=== PATIENT | female | born 1985 | race Caucasian/White ===

== ENCOUNTER 2022-08-23 08:28 | Emergency (ER) | payer OTHER ==
[2022-08-23 08:45] VITALS: BP 140/96
[2022-08-23] MEDS ORDERED: AMOX/CLAV 875 MG/125 MG TABLET PO STA (09:40)
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
== END 2022-08-23 10:05 | disposition home or self-care (01) ==
LOC: ED 08:28
DX: S61.412A Laceration without foreign body of left hand, initial encounter (principal); S61.411A Laceration without foreign body of right hand, initial encounter; W55.01XA Bitten by cat, initial encounter; F17.200 Nicotine dependence, unspecified, uncomplicated
CPT/HCPCS: 99282; 99283; A9270

== ENCOUNTER 2023-01-13 10:27 | Emergency (ER) | payer OTHER ==
[2023-01-13 10:41] VITALS: BP 159/96
[2023-01-13 10:55] LABS: RAPID STREP SCREEN Negative (Negative)
--- NOTE | 2023-01-13 11:08 | ED Physician Documentation ---
History of Present Illness - Stated complaint Stated Complaint: FEVER,SORE THROAT - Chief complaint Chief Complaint: Heent - History obtained from History obtained from: Patient - Additonal information Additional information: Here w/ sore throat for about 36 hours, feels some post Nasal drip and a bit of a lump in her throat but is not having difficulty managing secretions or airway. She denies any chest pain or difficulty breathing, no cough or nasal congestion. She has not had a fever to her knowledge. No known sick contacts but does have a toddler in daycare. She has been taking ibuprofen and Tylenol periodically. Review of Systems Constitutional: reports: Reviewed and negative Nose: reports: Reviewed and negative Throat: reports: Sore throat Cardiac: reports: Reviewed and negative Respiratory: reports: Reviewed and negative GI: reports: Reviewed and negative PD PAST MEDICAL HISTORY - Past Medical History Past Medical History: No - Present Medications Home Medications: Ambulatory Orders Medication Instructions Recorded Confirmed No Known Home Medications 01/13/23 01/13/23 - Allergies Allergies/Adverse Reactions: Allergies Allergy/AdvReac Type Severity Reaction Status Date / Time No Known Drug Allergies Allergy Verified 08/23/22 08:45 - Social History Does the pt smoke?: Yes Smoking Status: Current every day smoker PD ED PE NORMAL - Vitals Vital signs reviewed: Yes - General General: Alert and oriented X 3, No acute distress, Well developed/nourished - HEENT HEENT: Atraumatic, Ears normal, Moist mucous membranes, Other (Posterior pharynx is reddened but there is no swelling or exudate) - Neck Neck: Supple, no meningeal sign, No adenopathy - Cardiac Cardiac: RRR, No murmur - Respiratory Respiratory: No respiratory distress, Clear bilaterally Results - Vitals Vitals: Vital Signs - 24 hr 01/13/23 10:32 Temperature 37.1 C Heart Rate 70 Respiratory 20 Rate Blood Pressure 159/96 H O2 Saturation 100 Oxygen O2 Source Room air - Labs Labs: Laboratory Tests 01/13/23 10:33 Group A Strep Rapid Negative PD Medical Decision Making - ED course Complexity details: considered differential, d/w patient ED course: 37-year-old female here with sore throat for the last 36 hours. She is well- appearing on physical exam with stable vital signs. Her physical exam shows a reddened throat, no tonsillar swelling or exudate, no signs of peritonsillar abscess or retropharyngeal abscess. Her strep test is negative. I discussed with patient that this is likely a viral pharyngitis so we will send the strep test for culture and will notify her if anything changes. I recommended continued supportive measures including oral hydration, Tylenol and ibuprofen as needed and anticipate 5 to 7 days course of illness. Return precautions reviewed if worsening. Departure - Departure Disposition: 01 Home, Self Care Clinical Impression: Viral pharyngitis Condition: Good Instructions: ED Pharyngitis Viral Forms: PCP List
== END 2023-01-13 11:26 | disposition home or self-care (01) ==
LOC: ED 10:27
DX: J02.9 Acute pharyngitis, unspecified (principal); F17.200 Nicotine dependence, unspecified, uncomplicated
CPT/HCPCS: 87070; 87430; 99283